=== PATIENT | female | born 1945 | race Caucasian/White ===

== ENCOUNTER 2020-07-19 21:03 | Observation (INO) ==
[2020-07-19] MEDS ORDERED: SODIUM CHLORIDE 0.9% 500 ML IV STA (21:24)
[2020-07-19] MEDS ORDERED: ONDANSETRON 4 MG/2 ML VIAL IV STA (21:24)
[2020-07-19] MEDS ORDERED: MORPHINE 4 MG/1 ML VIAL IV STA (21:24)
[2020-07-19 21:57] LABS: Basophils % 0.1 % (0.0-0.8); Eosinophils % 0.1 % (0.00-10.9); Hematocrit 37.4 VOL% (35.7-47.0); Hemoglobin 11.8 GM/DL (12.0-16.0); Immature Granulocytes % 0.4 %; Immature Granulocytes Absolute 0.04 #; Lymphocytes # 0.4 10*3/uL (1.4-4.0); Lymphocytes % 4.7 % (21.3-54.2); Mean Corpuscular HGB Conc 31.6 GM/DL (32-36); Mean Corpuscular Volume 97.1 FL (87-102); Mean Platelet Volume 10.6 FL (9.6-12.0); Monocytes % 3.6 % (1.7-12.7); Neutrophils % 91.1 % (38.7-73.9); Platelet Count 230 T/CUMM (130-400); Red Blood Count 3.85 MC/CUMM (3.8-5.5); White Blood Count 8.9 T/CUMM (4-12)
[2020-07-19 22:14] LABS: Bilirubin,Urine Negative (Negative); Blood, Urine Negative (Negative); Glucose,Urine (UA) Negative (Negative); Hyaline Casts,Urine 10 /LPF (0-3); Ketones,Urine Negative (Negative); Mucus,Urine Occasional /LPF (Occasional); Nitrite,Urine Negative (Negative); Protein,Urine Negative; RBC,Urine <1 /HPF (0-4); Urine Appearance CLEAR (Clear); Urine Color Yellow (Yellow); Urine Specific Gravity 1.017 (1.001-1.035); WBC,Urine <1 /HPF (0-6)
[2020-07-19 22:21] LABS: Band Neutrophils 5 % (0-10); Lymphocytes 2 % (20-55); Segmented Neutrophils 89 % (50-85); Total Cells Counted 100
[2020-07-19 22:22] LABS: Albumin 3.7 G/DL (3.4-5.0); Bilirubin,Total 0.8 MG/DL (0.2-1.0); Calcium 9.4 MG/DL (8.5-10.1); Osmolality,Calculated 282.5 MOS/KG (273-304); Platelet Estimate Adequate; Total Protein 7.7 G/DL (6.4-8.3)
[2020-07-20] MEDS ORDERED: lisinopriL 5 MG TABLET PO SCH (09:00)
[2020-07-20 12:21] LABS: Albumin 3.2 G/DL (3.4-5.0); Bilirubin,Total 0.8 MG/DL (0.2-1.0); Calcium 9.3 MG/DL (8.5-10.1); Osmolality,Calculated 282.5 MOS/KG (273-304); Total Protein 7.2 G/DL (6.4-8.3)
[2020-07-20] MEDS: LEVOFLOXACIN INJ 500 MG in PREMIX 1 EACH IV SCH (12:37)
[2020-07-20] MEDS ORDERED: LIDOCAINE 1%/EPI INJ 20 ML VIAL ONE (12:59)
[2020-07-20] MEDS ORDERED: TISSUE ADHESIVE 1 EACH APPLICATOR TOP ONE (12:59)
[2020-07-20] MEDS ORDERED: cefOXitin 2,000 MG in SYRINGE 1 EACH IV ONE (13:21)
[2020-07-20] MEDS: LACTATED RINGERS 1,000 ML IV SCH ×2 (13:25→16:14)
[2020-07-20] MEDS ORDERED: LIDOCAINE 2% 5 ML VIAL ONE (14:25)
[2020-07-20] MEDS ORDERED: propofoL 200 MG/20 ML VIAL IV ONE (14:25)
[2020-07-20] MEDS ORDERED: fentaNYL 100 MCG/2 ML VIAL ONE (14:26)
[2020-07-20] MEDS ORDERED: GLYCOPYRROLATE 0.4 MG/2 ML VIAL ONE (14:26)
[2020-07-20] MEDS ORDERED: NEOSTIGMINE 10 MG/10 ML VIAL ONE (14:26)
[2020-07-20] MEDS ORDERED: PHENYLEPHRINE 10 MG/1 ML VIAL IV ONE (14:26)
[2020-07-20] MEDS ORDERED: SODIUM CHLORIDE 0.9% 100 ML IV ONE (14:26)
[2020-07-20] MEDS ORDERED: SEVOFLURANE 1 UNIT/15 MINUTE INH ONE (14:26)
[2020-07-20] MEDS ORDERED: ROCURONIUM 100 MG/10 ML VIAL IV ONE (14:26)
[2020-07-20] MEDS ORDERED: ONDANSETRON 4 MG/2 ML VIAL ONE ×2 (14:26→14:45)
[2020-07-20] MEDS ORDERED: ONDANSETRON 4 MG/2 ML VIAL IV PRN (14:42)
[2020-07-20] MEDS ORDERED: HYDROmorphone 2 MG/1 ML VIAL ONE (14:45)
[2020-07-20] MEDS: HYDROmorphone 2 MG/1 ML VIAL IV PRN ×2 (14:50→14:55)
[2020-07-20] MEDS: CHOLECALCIFEROL 1,000 UNIT TABLET PO SCH (16:14)
[2020-07-20] MEDS: MELOXICAM 7.5 MG TABLET PO PRN (18:22)
[2020-07-20] MEDS: ASPIRIN CHEW 81 MG TABLET PO SCH (18:23)
[2020-07-20] MEDS: carvediloL 3.125 MG TABLET PO SCH (18:23)
[2020-07-20] MEDS: PARoxetine 20 MG TABLET PO SCH (18:23)
[2020-07-20] MEDS: PIOGLITAZONE 15 MG TABLET PO SCH (18:23)
[2020-07-20] MEDS ORDERED: HYDROmorphone 2 MG/1 ML VIAL IV PRN (18:29)
[2020-07-20] MEDS: PANTOPRAZOLE 40 MG TABLET PO SCH (20:29)
[2020-07-20] MEDS: SIMVASTATIN 20 MG TABLET PO SCH (20:29)
[2020-07-21 06:05] LABS: Basophils % 0.2 % (0.0-0.8); Eosinophils % 0.1 % (0.00-10.9); Hematocrit 33.5 VOL% (35.7-47.0); Hemoglobin 10.4 GM/DL (12.0-16.0); Immature Granulocytes % 0.4 %; Immature Granulocytes Absolute 0.03 #; Lymphocytes # 0.6 10*3/uL (1.4-4.0); Lymphocytes % 7.4 % (21.3-54.2); Mean Corpuscular Volume 95.2 FL (87-102); Mean Platelet Volume 11.1 FL (9.6-12.0); Monocytes % 6.3 % (1.7-12.7); Neutrophils % 85.6 % (38.7-73.9); Platelet Count 211 T/CUMM (130-400); Red Blood Count 3.52 MC/CUMM (3.8-5.5); Red Cell Distribution Width 13.2 % (9.3-17.3); White Blood Count 8.2 T/CUMM (4-12)
[2020-07-21] MEDS ORDERED: LEVOTHYROXINE 100 MCG TABLET PO SCH (06:30)
[2020-07-21 06:45] LABS: Band Neutrophils 12 % (0-10); Lymphocytes 7 % (20-55); Segmented Neutrophils 69 % (50-85); Total Cells Counted 100
[2020-07-21 06:46] LABS: Hypochromasia Slight; Microcytosis Slight; Platelet Estimate Normal
[2020-07-21 07:27] LABS: Albumin 2.8 G/DL (3.4-5.0); Calcium 8.2 MG/DL (8.5-10.1); Osmolality,Calculated 277.1 MOS/KG (273-304); Total Protein 6.1 G/DL (6.4-8.3)
[2020-07-21] MEDS: SODIUM CHLORIDE 0.9% 1,000 ML IV SCH ×3 (07:32→23:46)
[2020-07-21] MEDS: LEVOTHYROXINE 88 MCG TABLET PO SCH (08:02)
[2020-07-21] MEDS: PIOGLITAZONE 15 MG TABLET PO SCH (09:21)
[2020-07-21] MEDS: carvediloL 3.125 MG TABLET PO SCH (09:21)
[2020-07-21] MEDS: PARoxetine 20 MG TABLET PO SCH (09:22)
[2020-07-21] MEDS: CHOLECALCIFEROL 1,000 UNIT TABLET PO SCH (09:22)
[2020-07-21] MEDS: ASPIRIN CHEW 81 MG TABLET PO SCH (09:22)
[2020-07-21] MEDS: LEVOFLOXACIN INJ 500 MG in PREMIX 1 EACH IV SCH (09:24)
[2020-07-21] MEDS: LORazepam 0.5 MG TABLET PO SCH ×2 (14:49→20:57)
[2020-07-21] MEDS: SIMVASTATIN 20 MG TABLET PO SCH (20:57)
[2020-07-21] MEDS: PANTOPRAZOLE 40 MG TABLET PO SCH (20:57)
[2020-07-22] MEDS: LEVOTHYROXINE 88 MCG TABLET PO SCH (05:30)
[2020-07-22 06:05] LABS: Basophils % 0.1 % (0.0-0.8); Eosinophils # 0.3 10*3/uL (0.0-0.87); Eosinophils % 3.8 % (0.00-10.9); Hematocrit 30.6 VOL% (35.7-47.0); Hemoglobin 9.7 GM/DL (12.0-16.0); Immature Granulocytes % 0.5 %; Immature Granulocytes Absolute 0.04 #; Lymphocytes # 0.8 10*3/uL (1.4-4.0); Mean Corpuscular HGB Conc 31.7 GM/DL (32-36); Mean Corpuscular Volume 95.6 FL (87-102); Mean Platelet Volume 11.4 FL (9.6-12.0); Monocytes % 6.1 % (1.7-12.7); Neutrophils % 78.5 % (38.7-73.9); Platelet Count 190 T/CUMM (130-400); Red Cell Distribution Width 12.9 % (9.3-17.3); White Blood Count 7.4 T/CUMM (4-12)
[2020-07-22 06:30] LABS: Albumin 2.3 G/DL (3.4-5.0); Bilirubin,Total 1.2 MG/DL (0.2-1.0); Calcium 7.9 MG/DL (8.5-10.1)
[2020-07-22] MEDS: PIOGLITAZONE 15 MG TABLET PO SCH (09:49)
[2020-07-22] MEDS: PARoxetine 20 MG TABLET PO SCH (09:49)
[2020-07-22] MEDS: carvediloL 3.125 MG TABLET PO SCH (09:49)
[2020-07-22] MEDS: ASPIRIN CHEW 81 MG TABLET PO SCH (09:49)
[2020-07-22] MEDS: CHOLECALCIFEROL 1,000 UNIT TABLET PO SCH (09:49)
[2020-07-22] MEDS: LEVOFLOXACIN INJ 500 MG in PREMIX 1 EACH IV SCH (09:51)
[2020-07-22] MEDS: MELOXICAM 7.5 MG TABLET PO PRN (11:28)
[2020-07-22] MEDS: LORazepam 0.5 MG TABLET PO SCH ×3 (12:29→21:48)
[2020-07-22] MEDS ORDERED: GLUCAGON 1 MG VIAL IM PRN (14:01)
[2020-07-22] MEDS ORDERED: DEXTROSE 50% 25 GM/50 ML VIAL IV PRN (14:01)
[2020-07-22] MEDS: SODIUM CHLORIDE 0.9% 1,000 ML IV SCH ×2 (14:22→19:25)
[2020-07-22] MEDS: PANTOPRAZOLE 40 MG TABLET PO SCH (21:43)
[2020-07-22] MEDS: SIMVASTATIN 20 MG TABLET PO SCH (21:43)
[2020-07-23 05:36] LABS: Basophils % 0.3 % (0.0-0.8); Eosinophils # 0.3 10*3/uL (0.0-0.87); Eosinophils % 4.7 % (0.00-10.9); Hematocrit 30.1 VOL% (35.7-47.0); Hemoglobin 9.6 GM/DL (12.0-16.0); Immature Granulocytes % 0.6 %; Immature Granulocytes Absolute 0.04 #; Lymphocytes # 0.9 10*3/uL (1.4-4.0); Lymphocytes % 14.5 % (21.3-54.2); Mean Corpuscular HGB Conc 31.9 GM/DL (32-36); Mean Platelet Volume 10.6 FL (9.6-12.0); Monocytes % 8.9 % (1.7-12.7); Platelet Count 207 T/CUMM (130-400); Red Blood Count 3.17 MC/CUMM (3.8-5.5); Red Cell Distribution Width 12.8 % (9.3-17.3); White Blood Count 6.4 T/CUMM (4-12)
[2020-07-23 06:01] LABS: Albumin 2.2 G/DL (3.4-5.0); Bilirubin,Total 1.2 MG/DL (0.2-1.0); Osmolality,Calculated 278.5 MOS/KG (273-304); Total Protein 6.1 G/DL (6.4-8.3)
[2020-07-23] MEDS: SODIUM CHLORIDE 0.9% 1,000 ML IV SCH (06:17)
[2020-07-23] MEDS: LEVOTHYROXINE 88 MCG TABLET PO SCH (07:08)
[2020-07-23] MEDS: carvediloL 3.125 MG TABLET PO SCH (09:08)
[2020-07-23] MEDS: PIOGLITAZONE 15 MG TABLET PO SCH (09:08)
[2020-07-23] MEDS: CHOLECALCIFEROL 1,000 UNIT TABLET PO SCH (09:08)
[2020-07-23] MEDS: PARoxetine 20 MG TABLET PO SCH (09:08)
[2020-07-23] MEDS: ASPIRIN CHEW 81 MG TABLET PO SCH (09:08)
[2020-07-23] MEDS: LEVOFLOXACIN INJ 500 MG in PREMIX 1 EACH IV SCH (09:08)
[2020-07-23] MEDS: LORazepam 0.5 MG TABLET PO SCH (10:59)
[2020-07-23 11:51] VITALS: BP 132/67
== END 2020-07-23 14:25 | disposition home or self-care (01) ==
LOC: EDBD → EDUNIT# → N.ED 21:03 → N.EDINP 21:03 → N.3E 07-20 01:38
PROVIDERS: ADMIT Family Medicine; ATTEND Family Medicine
PROC: LAPCHOL (2020-07-20 13:21)